=== PATIENT | male | born 1990 | race Caucasian/White ===

== ENCOUNTER 2017-03-02 22:00 | Emergency (ER) | payer OTHER ==
[~2017-03-02] VITALS: Ht 167.6 cm; Wt 80.0 kg
[2017-03-02 22:03] VITALS: BP 136/69; PULSE 84; RESP 16; TEMP 98.9; O2SAT 97
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
[2017-03-02] MEDS ORDERED: TETANUS/DIPHTHERIA TOXOID ADULT 0.5 ML VIAL IM ONE (22:30)
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
[2017-03-03] MEDS ORDERED: IBUP-232 PO (00:28)
[2017-03-03] MEDS ORDERED: PERC5TAB12 PO (00:28)
[2017-03-03] MEDS ORDERED: oxyCODONE/ACETAMINOPHEN 5 MG/325 MG TAB PO ONE (00:30)
== END 2017-03-03 01:10 | disposition home or self-care (01) ==
LOC: NEPC 22:00
DX: S52.121A Displaced fracture of head of right radius, initial encounter for closed fracture (principal); M25.551 Pain in right hip; M79.642 Pain in left hand; V23.4XXA Motorcycle driver injured in collision with car, pick-up truck or van in traffic accident, initial encounter; Z23 Encounter for immunization
CPT/HCPCS: 29105; 70450; 71020; 73080; 73130; 73502; 90471; 90714